=== PATIENT | female | born 1965 | race Caucasian/White ===

== ENCOUNTER 2023-07-20 11:23 | Outpatient (CLI) | payer MEDICARE, SELFPAY | END 2023-07-20 11:24 | disposition home or self-care (01) | LOC: NFLDREF 07-21 11:39 | PROVIDERS: Visit Provider Internal Medicine Addiction Medicine | DX: F11.90 Opioid use, unspecified, uncomplicated (principal) | CPT/HCPCS: 80306 ==

== ENCOUNTER 2024-12-11 09:59 | Outpatient (CLI) | payer MEDICARE, SELFPAY ==
--- NOTE | 2024-12-11 10:00 | CRLHL7_ITS ---
For Patients: As a result of the Century Cures Act, medical imaging exams and procedure reports are released immediately into your electronic medical record. You may view this report before your referring provider. If you have questions, please contact your health care provider. Indication: Chronic sinusitis. Technique: Noncontrast CT of the paranasal sinuses with multiplanar reconstruction utilizing bone and soft tissue algorithms. Comparison: None available. Findings: Frontal sinuses: Clear. Trace mucosal thickening in the frontal recesses. Type 3 left frontal cell. Maxillary sinuses: Operative changes of functional endoscopic sinus surgery including maxillary antrostomies, uncinectomies, and partial ethmoidectomies. Moderate lobulated mucosal thickening throughout the right maxillary sinus and trace mucosal thickening in the left maxillary alveolar recess. Diffuse maxillary sinus wall hyperostosis as sequela of chronic sinusitis. Ethmoid sinuses: Moderate lobulated mucosal thickening throughout the residual anterior ethmoid air cells. Sphenoid sinuses: Trace mucosal thickening on the left. Patent ostia. Nasal cavity: Essentially midline nasal septum with no large septal spur. Mild hypertrophy of the middle and inferior turbinates. Other: Symmetric nasopharynx. Unremarkable orbits. On limited evaluation, the intracranial structures appear within normal limits. Impression: 1. Operative changes of functional endoscopic sinus surgery including maxillary antrostomies, uncinectomies, and partial ethmoidectomies. 2. Moderate diffuse mucosal thickening throughout the right maxillary sinus and residual anterior ethmoid air cells. 3. Trace additional mucosal thickening within the left maxillary sinus and sphenoid sinuses. 4. Diffuse maxillary sinus wall hyperostosis as sequela of chronic sinusitis. Please note that all CT scans at this facility use dose modulation, iterative reconstruction, and/or weight-based dosing when appropriate to reduce radiation dose to as low as reasonably achievable. Dictated by Bandar Oneal MD @ 12/12/2024 9:13:59 PM (Electronically Signed)
== END 2024-12-11 10:00 | disposition home or self-care (01) ==
LOC: CT 10:00
PROVIDERS: PCP Internal Medicine; Visit Provider Otolaryngology
DX: J32.9 Chronic sinusitis, unspecified (principal); J32.0 Chronic maxillary sinusitis
CPT/HCPCS: 70486

== ENCOUNTER 2025-01-03 06:22 | Day surgery (SDC) | payer MEDICARE, SELFPAY ==
[2025-01-03] VITALS (10 sets, daily range): BP systolic 83–133; BP diastolic 49–82; PULSE 70–77; RESP 16–25; TEMP 36.1–36.6; O2SAT 97–100; BMI 20.1
[2025-01-03] MEDS: LACTATED RINGERS 1000 ML 1,000 ML 100 ML IV (06:35)
[2025-01-03] MEDS: OXYMETAZOLINE 0.05% NASAL SPRAY 2 SPRAY NOSTRIL-B (07:19)
[2025-01-03] MEDS: SODIUM CHLORIDE 0.9 % (FLUSH) 10 ML SYRINGE IVF (07:20)
[2025-01-03] MEDS: BUPIVACAINE 0.5%/EPINEPHRINE 0.9 MG (30.9 ML) INJECTION (09:02)
--- NOTE | 2025-01-03 09:17 | P.ANES_ITS ---
Anesthesia Charges Start Date/Time Anesthesia Start Date: 01/03/25 Anesthesia Start Time: 08:26 Stop Date/Time Anesthesia Stop Date: 01/03/25 Anesthesia Stop Time: 09:19 Coding CPT Codes CPT Codes: ANESTH NOSE/SINUS SURGERY - 45792 ([id number]) P4 - PT W/SEV SYS DIS THREAT LIFE, QK - SPLUNK DEVELOPER 2-4 CNCRNT ANES PROC, QX - BOXING TRAINER SVC W/ MD MED DIRECTION
--- NOTE | 2025-01-03 09:17 | W.ANESCHARGE ---
Anesthesia Charges Start Date/Time Anesthesia Start Date: 01/03/25 Anesthesia Start Time: 08:26 Stop Date/Time Anesthesia Stop Date: 01/03/25 Anesthesia Stop Time: 09:19 Coding CPT Codes CPT Codes: ANESTH NOSE/SINUS SURGERY - 52016 ([id number]) P4 - PT W/SEV SYS DIS THREAT LIFE, QK - CONSULTING SME 2-4 CNCRNT ANES PROC, QX - TECHNOLOGY ARCHITECT SVC W/ MD MED DIRECTION
--- NOTE | 2025-01-03 10:01 | P.ANES_ITS ---
Anesthesia Charges Start Date/Time Anesthesia Start Date: 01/03/25 Anesthesia Start Time: 08:26 Stop Date/Time Anesthesia Stop Date: 01/03/25 Anesthesia Stop Time: 09:19 Coding CPT Codes CPT Codes: ANESTH NOSE/SINUS SURGERY - 99120 ([id number]) QK - STORE ADMINISTRATIVE ASSISTANT 2-4 CNCRNT ANES PROC, QX - OVEN TECHNICIAN SVC W/ MD MED DIRECTION, P4 - PT W/SEV SYS DIS THREAT LIFE
--- NOTE | 2025-01-03 10:01 | W.ANESCHARGE ---
Anesthesia Charges Start Date/Time Anesthesia Start Date: 01/03/25 Anesthesia Start Time: 08:26 Stop Date/Time Anesthesia Stop Date: 01/03/25 Anesthesia Stop Time: 09:19 Coding CPT Codes CPT Codes: ANESTH NOSE/SINUS SURGERY - 28539 ([id number]) QK - FILAMENT SHAPER 2-4 CNCRNT ANES PROC, QX - CONCILIATION COURT JUDGE SVC W/ MD MED DIRECTION, P4 - PT W/SEV SYS DIS THREAT LIFE
--- NOTE | 2025-01-03 10:10 | W.PM.ENTPROC ---
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 Image guidance and 0 degree endoscopy was utilized throughout the procedure Under general endotracheal anesthesia patient was prepped and draped in usual fashion the nose decongested and injected. All injection and decongestion was on the right side. Image guidance was verified. The natural os the maxillary sinus was occluded by polypoid tissue this was removed a large amount of polypoid tissue removed from the floor and hoover of the sinus. There was also some inspissated mucus. The anterior ethmoid cells were verified with image guidance and then opened with an ethmoid forceps. All specimen was sent to pathology. Dissolvable gel packing was then placed in the nose. Note that a 9 mm antrostomy was left. Patient procedure well was taken recovery satisfactory condition. Blood loss was 10 mL. Surgeon: Juice Rader MD
--- NOTE | 2025-01-03 10:29 | SUR.PHASEII ---
Patient stated she is ready to go home within 10 minutes of coming to PACU II. She received one pain pill. She was alert and oriented, drinking water and eating a cracker. Patient discharged at 10:30 after receiving discharge instructions.
== END 2025-01-03 10:31 | disposition home or self-care (01) ==
LOC: OR 06:22
PROVIDERS: PCP Internal Medicine; Visit Provider Otolaryngology
PROC: (CPT 31231; principal; 2025-01-03 07:45)
DX: J32.0 Chronic maxillary sinusitis (principal); J32.2 Chronic ethmoidal sinusitis
CPT/HCPCS: 31267; 31254; 00160; 88305; A9270; J0330; J1100; J2250; J2371; J2405; J2704; J3010; J7120

== ENCOUNTER 2025-02-04 15:20 | Outpatient (CLI) | payer MEDICARE, SELFPAY | END 2025-02-04 15:21 | disposition home or self-care (01) | LOC: LKVREF 15:21 | PROVIDERS: PCP Internal Medicine; Visit Provider Physician Assistant | DX: J32.9 Chronic sinusitis, unspecified (principal) | CPT/HCPCS: 87070; 87186 ==